=== PATIENT | male | born 1990 | race Caucasian/White ===

== ENCOUNTER 2024-04-01 01:03 | Observation (INO) | payer OTHER, SELFPAY ==
[2024-03-31 22:29] VITALS: BP 129/100
[2024-03-31 22:31] VITALS: BP 129/100
[2024-03-31 22:38] VITALS: BMI 27.1
[2024-03-31 22:46] LABS: % Basophils 0.9 % (0-2); % Eosinophils 3.9 % (0-6); % Immature Granulocytes 0.5 % (0-0.5); % Monocytes 8.7 % (1.7-9.3); Absolute Basophils 0.1 10^3/uL (0-0.2); Absolute Eosinophils 0.3 10^3/uL (0-0.7); Absolute Lymphocytes 2.6 10^3/uL (1.2-3.4); Absolute Monocytes 0.8 10^3/uL (0.1-0.6); Absolute Neutrophils 4.9 10^3/uL (1.4-6.5); Hematocrit 41.1 % (39.0-52.0); Hemoglobin 15.2 g/dL (13.0-18.0); Mean Corpuscular Hgb 30.4 pg (27.0-31.0); Mean Corpuscular Volume 82.2 fL (80.0-94.0); Nucleated Red Blood Cells % 0 % (-); Platelet Count 226 10^3/uL (130-400); Red Cell Dist. Width 12.1 % (11.5-14.5); White Blood Cell Count 8.7 10^3/uL (4.8-10.8)
[2024-03-31 22:47] VITALS: BP 166/94
[2024-03-31 23:00] VITALS: BP 120/97
--- NOTE | 2024-03-31 23:11 | ED.GENMED ---
History of Present Illness
General
Chief Complaint: Dizziness
Source: patient
Exam Limitations: none
Time Seen by Provider: 03/31/24 22:30
Nursing documentation reviewed up to this point in time: agreed with
History of Present Illness
History of Present Illness:
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
thought was methamphetamine here he has had a slow A-fib with some pauses corresponding to him vomiting his partner tells me there is been some fluid going around his work, patient has no history of A-fib, no personal history of A-fib no family
history of A-fib noted his family should needed a pacemaker
Past History
Past History
ED Past Medical History: HTN
ED Past Surgical History: Orthopedic
Social History
Tobacco: Non-smoker
Alcohol: Occasional
Drug: None
Living: with family
Employment: Employed
Review of Systems
Review of Systems
All Other Systems: Not applicable
Constitutional: Reports fatigue; Denies fever
EENT: Reports no symptoms
Respiratory: Reports no symptoms
Cardiac: Reports diaphoresis and palpitations; Denies chest pain or syncope
ABD/GI: Reports nausea and vomiting
: Reports no symptoms
Musculoskeletal: Reports no symptoms
Neurological: Reports dizzy
Endocrine: Reports no symptoms
Phy Exam
Physical Exam
Physical Exam:
Physical Exam
General: 33-year-old female diaphoretic nauseous
Neck: No jaundice
Heart: Slow irregular
Lungs: no acute respiratory distress. clear bilaterally
Abdomen: Not tender
Neuro: alert and oriented. no focal neurological deficits
Skin: no rash
Psychiatric: well kept. interactive and cooperative
Extremities: no edema.
Course
Orders/Labs/Results
Orders:
Orders
03/31/24 22:29
Electrocardiogram (*1) Urgent
Reason for Study: Abnormal EKG
EKG- Treatment ONCE
03/31/24 22:40
Complete Blood Count/With Diff Urgent
Comprehensive Metabolic Panel Urgent
Magnesium Urgent
03/31/24 22:45
Atropine Sulfate [Atropine 0.1 mg/ml Syringe] 1 mg .ROUTE .STK-MED ONE
03/31/24 22:46
Electrocardiogram (*1) Urgent
Reason for Study: Palpitations
03/31/24 22:47
EKG- Treatment ONCE
03/31/24 22:52
TSH Reflex To Free T4 Urgent
Troponin I Urgent
03/31/24 22:56
Influenza A+B Rapid Molecular Urgent
LISE Source: Nasal Swab
Specimen Description:
03/31/24 22:59
Urine Drug Abuse Screen Urgent
04/01/24 00:00
CR Chest - 2 Views Urgent
Reason For Exam: new onset afib
04/01/24 00:54
Admit/Transfer Patient As Directed
Co-Sign Provider:
Level of Care: Observation services
Assign to:: Telemetry
Physician / Group: Dwayne
Diagnosis: New A-Fib, Vertigo
Reason for Telemetry: Arrhythmia
Date to Stop Telemetry: 04/04/24
Time to Stop Telemetry: 11:00
Code Status As Directed
Resuscitation Status: Full Code
PRN Pain Medication Management As Directed
May give lesser potent ordered pain med per pt: Yes
preference::
Protocol:: Medication orders for pain may be administered in a
manner that supports deferring to patient preference
when the pt is:
- Requesting an ordered lesser potent pain medication.
Least to most potent pain medications are defined
as: acetaminophen < NSAID < tramadol < opioids
(morphine, oxycodone, hydromorphone).
- Requesting a lesser dose of the same medication IF
ORDERED.
- Requesting a less intrusive route of administration
if both routes are prescribed by the provider (PO <
IV).
04/04/24 11:00
DC Protocol for Telemetry ONCE
Abnormal Lab Results
03/31/24
22:40
Absolute Monos (auto) 0.8 H 10^3/uL
(0.1-0.6)
Creatinine 0.6 L mg/dL
(0.7-1.3)
Glucose 125 H mg/dl
(70-99)
03/31/24 22:40
03/31/24 22:40
Vital Signs
Initial and Last Documented VS:
Initial Vital Signs
BP
129/100
03/31/24 22:29
Last Documented Vital Signs
Temp Pulse Resp BP Pulse Ox
97.6 F 72 21 117/74 95
03/31/24 22:31 04/01/24 00:45 04/01/24 00:45 04/01/24 00:36 04/01/24 00:45
MDM/Problems Addressed
Differential Diagnosis Includes:
Viral syndrome primary arrhythmia, doubt medication/drug-induced bradycardia perhaps vasovagal induced bradycardia
MDM/Problems Addressed:
Bradycardia A-fib nausea
Chronic conditions affecting care: HTN
Acute Exacerbation and/or Progression of Chronic Illness: HTN
*Radiology
Radiology exam reviewed: preliminary read by ED provider
*Pulse Oximetry
Patient hypoxic: no
*EKG
Interpreted by ED Provider?: Yes
Interpretation: abnormal
Comparison EKG: no comparison EKG present
Heart Rate: 58
Rate: bradycardiac
Rhythm: a-fib
Ischemia: non-specific ST changes
*Network Pricing Consultant Interpretation
Rate: normal
Interpretation: normal
Heart Rate: 58
Rhythm: a-fib
*Critical Care Note
Total Time (30-74mins, 75-104mins- exclusive of procedures): Not Applicable
Update Note
Update Note:
Update, feeling better after fluids received Zofran by EMS did have an episode here bradycardia will review his strips some of this could certainly be vagally mediated,
Update continues to feel okay still in A-fib chest x-ray noted labs are noted flu negative
ED Attending Note
-
Portions of this chart may have been created with voice recognition software.� Occasional wrong word or��sound alike� substitutions may have occurred due to the inherent limitations of voice recognition software.
Discharge Plan
Departure
Patient Disposition: Admit
Date of Disposition: 04/01/24
Time of Disposition: 00:40
Admit to: Telemetry
Presentation/result/management discussed w/ accepting MD/DO: Hospitalist
Patient with high blood pressure during this ER visit?: No
Condition: Fair
Discharge Problem:
Near syncope, Atrial fibrillation, Bradycardia
Interventions
Interventions:
*Risk Screen - Suicide Last Done: 03/31/24 22:32
*General Assessment Last Done: 03/31/24 22:36
*Neglect/Abuse Screening Last Done: 03/31/24 22:32
*ED COVID-19 Vaccine History Last Done: 03/31/24 22:31
ED- Neurological Assessment Last Done: 03/31/24 22:34
ED Swallowing Screen Last Done: 03/31/24 22:34
[2024-03-31 23:17] LABS: ALT (SGPT) 39 U/L (0-50); AST (SGOT) 33 U/L (17-59); Albumin 4.9 g/dl (3.5-5.0); Alkaline Phosphatase 66 U/L (38-126); Blood Urea Nitrogen 18 mg/dl (9-20); Calcium 9.2 mg/dl (8.4-10.2); Carbon Dioxide 23 mmol/L (22-30); Chloride 101 mmol/L (98-107); Glucose 125 mg/dl (70-99); Magnesium 2.1 mg/dl (1.6-2.3); Potassium 3.7 mmol/L (3.5-5.1); Sodium 138 mmol/L (135-145); Total Bilirubin 0.7 mg/dl (0.2-1.3); Total Protein 7.2 g/dl (6.3-8.2); eGFR > 60.00
[2024-03-31 23:27] LABS: Troponin I < 0.012 ng/ml
[2024-04-01] VITALS (9 sets, daily range): BP systolic 106–141; BP diastolic 74–103; PULSE 74–86; BMI 26.2
--- NOTE | 2024-04-01 00:57 | HPS.HSE ---
Family Physician
-
Family Physician: Charmaine Burns
Chief Complaint
-
Dizzy, N/V
History of Present Illness
Patient is a 33y M with PMH significant for hypertension who presents to ED complaining of dizziness and N/V that started suddenly this evening. Patient states that he has been feeling well today / recently. He has family members and co-workers
who have jose ill with the flu. Today he had lunch at [employer] and then went to work this evening. 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 He states that he was checking a powdery
substance into evidence when he noted room spinning sensation and nausea. No headache, vision changes, chest pain or dyspnea. Patient states that the substance did not contact his skin. There was no exposure to fumes, etc that was appreciated.
Patient did not lose consciousness but had to sit down due to the dizziness. He had 4 episodes of emesis at the police station and then multiple additional episodes here in the ED.
On evaluation in the ED, patient is noted to be in atrial fibrillation with controlled rates / occasional pauses. No prior history of this.
At present, patient states that his dizziness and nausea are somewhat improved.
Medical History
Past Medical History
Past Medical History: Reports Other
Additional Past Medical History:
Hypertension
Asthma
Past Surgical History: Reports None and Other
Social History
Tobacco: Non-smoker
Alcohol: Occasional
Drug: None
Family History
Family History: CAD and Hypertension
Allergies / Home Medications
Allergies reflects when Allergies were last updated in [facility].
Home Medications with original date entered in [facility]
Allergy/Medication List:
Allergies
Allergy/AdvReac Type Severity Reaction Status Date / Time
prochlorperazine Allergy Swelling Verified 03/31/24 22:30
[From Compazine]
Home Medications
losartan 25 mg tablet 25 mg PO BID 03/31/24
Review of Systems
-
History Source: Patient
A 12 point ROS was completed and negative except as noted: Yes
Constitutional: Denies Fever or Chills
Respiratory: Denies Cough or Trouble Breathing
Cardiac: Denies Chest Pain or Palpitations
Abdomen/GI: Reports Nausea and Vomiting; Denies Abdominal Pain or Diarrhea
: Denies Dysuria or Frequency
Musculoskeletal: Denies Joint Pain or Edema
Neurological: Reports Dizzy; Denies Headache
Psych: Denies Depression or Anxiety
Physical Exam
Vital Signs
Vital Signs
Temp Pulse Resp BP Pulse Ox
97.6 F 72 21 117/74 95
03/31/24 22:31 04/01/24 00:45 04/01/24 00:45 04/01/24 00:36 04/01/24 00:45
Physical Exam
General: Other (33y M in no acute distress.)
HEENT: Moist mucous membranes and PERRLA
Respiratory: Clear; No Wheezes, Rales or Rhonchi
Cardiac: S1/S2 and Irregular Rhythm; No Murmur
GI: Soft, Non Tender, Non Distended and Normal Bowel Sounds
Musculoskeletal: No Clubbing, No Cyanosis and No Edema
Neuro: AO x 3 and Nonfocal/grossly intact
Laboratory Results
-
03/31/24 22:40
03/31/24 22:40
Laboratory Results
Total Bilirubin 0.7 mg/dl (0.2-1.3) 03/31/24 22:40
AST 33 U/L (17-59) 03/31/24 22:40
ALT 39 U/L (0-50) 03/31/24 22:40
Alkaline Phosphatase 66 U/L (38-126) 03/31/24 22:40
Troponin I < 0.012 ng/ml 03/31/24 22:52
Impression/Plan
-
A/P: Patient is a 33y M with PMH significant for hypertension who presents to ED c/o onset of dizziness and N/V this evening.
Vertigo / Dizziness
- Observe overnight for further evaluation and treatment.
- Supportive care including IVFs, antiemetics, and meclizine PRN.
- Symptoms improving since initial arrival.
- Follow for clinical changes.
- Consider [facility] imaging / MRI if symptoms worsen or recur or new / focal symptoms develop.
- ? if symptoms related to 'substance' exposure (suspected methamphetamine) - but patient denies any skin contact / inhalation / etc.
- UDS pending.
Atrial Fibrillation - New
- Patient noted to be in A-Fib with no prior tracings for comparison.
- No palpitations, chest pain, etc.
- ? onset of arrhythmia coincides with onset of this evening's symptoms?
- Monitor on telemetry overnight.
- No need for chronotropic agents - slow rate with occasional pauses.
- TFTs normal. Electrolytes normal.
- Cardiology eval in the AM for additional recommendations.
- CHADSVASC = 1 (hypertension). Defer to Cardiology for now re: decision on anticoagulation.
Benign Hypertension
- Stable. Continue losartan with holding parameters.
Asthma without Acute Exacerbation
- Stable. Continue Breo daily.
- Patient notes that he never requires his rescue inhaler.
DVT prophylaxis: Lovenox
Code Status: Full
[2024-04-01 01:39] LABS: Amphetamines Negative (Negative); Barbiturates Negative (Negative); Benzodiazepines Negative (Negative); Buprenorphine Negative (Negative); Cocaine Negative (Negative); Marijuana Negative (Negative); Methadone Negative (Negative); Methamphetamines Negative (Negative); Opiates Negative (Negative); Phencyclidine Negative (Negative); Tricyclic Antidepressants Negative (Negative)
[2024-04-01] MEDS: LR 1000 IV ×3 (02:51→21:26)
--- NOTE | 2024-04-01 04:31 | TRANSFER ---
pt arrived from ED,walked independently to bed from stretcher. AAOx3, VSS. call matthews within reach, plan of care ongoing
[2024-04-01 07:50] LABS: Blood Urea Nitrogen 12 mg/dl (9-20); Calcium 9.5 mg/dl (8.4-10.2); Carbon Dioxide 28 mmol/L (22-30); Chloride 100 mmol/L (98-107); Estimated Creatinine Clearance > 125 ml/min; Glucose 111 mg/dl (70-99); HDL Cholesterol 49 mg/dl; LDL Cholesterol, Calculated 133 mg/dl; Potassium 4.3 mmol/L (3.5-5.1); Sodium 139 mmol/L (135-145); Total Cholesterol 189 mg/dl (50-199); Triglyceride 39 mg/dl (10-149); Very Low Density Lipoprotein 7 mg/dl (0-30); eGFR > 60.00
--- NOTE | 2024-04-01 08:19 | CON.CAR ---
Addendum entered and electronically signed by Michael Lee MD 04/01/24 12:24:
I saw and examined the patient.
The BACK OFFICE MEDICAL ASSISTANT's note was reviewed and I agree with the note.
Comment: 33 yo with HTN, who presents to the ER with c/o acute dizziness (room spinning) with associated nausea and vomiting while at work and came to the ER via EMS. He was noted to be in rate controlled AF. He is now feeling better without any
further dizziness, yet remains in AF. His father and paternal grandmother had AF at a yound age. 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 He has never had an issue swallowing. On exam he irreg irreg without any murmmurs,
lungs are CTA. ECG is AF with PVC. Overall, he has new dx of afib. I don't think it is the cause of his symptoms as he is feeling better and not having the symptoms. Given age, I will offer FOZIA/DCCV after any further evaluation for dixxiness and
visual changes complete. He is a C2V of a 1. Would need to agree to DOAC post cardioversion. He understands. D/w Dr Shah who will see and evaluate. Tentative plan for FOZIA/DCCV in the am.
Original Note:
Consultation
Consultation Request
Date/Time Consultation Requested: 04/01/24 1a
Date/Time Consultation Performed: 04/01/24 8:15a
Requesting Provider: Dr. Rice
Performing Provider: MADAY Murray for Dr. Lee
Reason for Consultation: Afib
Medical History
-
Chief Complaint: dizziness, nausea/vomiting
History of Present Illness:
Mr. Brown is a 33 yo with HTN, who presents to the ER with c/o acute dizziness (room spinning) with associated nausea and vomiting while at work and came to the ER via EMS. He was noted to have new Afib, rate controlled on EKG. He is admitted to
the hospitalist service and we are consulted for new onset Afib. EKG in the ER with Afib 62 bpm. He denies feeling any palpitations then or now.
Past Medical History
Past Medical History: HTN
Past Surgical History: Orthopedic (ankle)
Social History
Tobacco: Non-Smoker
Alcohol: Occasional (one drink a month)
Drug: None
Personal:
Living: With Family
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
Family History
Family History: Other (father has Afib )
Allergies / Home Medications
Allergy/AdvReac Type Severity Reaction Status Date / Time
prochlorperazine Allergy Swelling Verified 03/31/24 22:30
[From Compazine]
�Medication �Instructions �Recorded �Confirmed �Type
losartan 25 mg tablet 25 mg PO BID 03/31/24 03/31/24 History
fluticasone furoate 100 1 inh inhalation QPM 04/01/24 04/01/24 History
mcg-vilanterol 25 mcg/dose
inhalation powder (Breo Ellipta)
Review of Systems
-
History Source: Patient
All other systems: Negative unless noted
Physical Exam
Vital Signs
Temp Pulse Resp BP Pulse Ox
98.4 F 105 20 126/93 98
04/01/24 03:30 04/01/24 03:30 04/01/24 03:30 04/01/24 03:30 04/01/24 04:22
Lab Results
04/01/24 06:54
Troponin I < 0.012 ng/ml 03/31/24 22:52
Physical Exam
General: Well Developed, Well Nourished and No Apparent Distress
HEENT: Normocephalic, Anicteric and Moist Mucous Membranes
Respiratory: Clear and Non Labored Respirations
Cardiac: S1/S2 and Irregular Rhythm
Breast: Deferred by me
GI: Soft, Non Tender, Non Distended and Normal Bowel Sounds
Rectal: Deferred by Provider
Genito-urinary: No Costovertebral Tender
Musculoskeletal: No Clubbing, No Cyanosis and No Edema
Skin: Warm and Dry
Neuro: AO x 3
Hematologic/Lymphatic: No Lymphadenopathy
Psych: Calm
Impression / Plan
-
Afib - new onset, duration unknown, presumed acute onset last night.
- rate controlled, asymptomatic.
- [id number] score is 1 (HTN).
- check echo today.
- consider FOZIA/DCCV tomorrow, post CV he will need OAC uninterrupted for 28 days.
HTN - stable on Losartan, continue.
Dizziness - acute onset described as the room spinning with nausea/vomiting.
- vertigo? has meclizine ordered PRN, not needed yet today.
- per hospitalist.
- check echo.
- none further today.
Data Reviewed
-
EKG: Tracing Personally Visualized and interpreted (Afib 62 bpm)
Radiology: Image Personally Visualized and interpreted (CXR nad)
Labs: Labs Reviewed by me
[2024-04-01 08:43] LABS: Glycohemoglobin (HgbA1c) 4.9 % (4.0-5.6)
[2024-04-01] MEDS: COZAAR 25 MG PO (08:51)
[2024-04-01 09:17] LABS: Hematocrit 43.7 % (39.0-52.0); Mean Corp Hgb Conc. 36.6 g/dL (33.0-37.0); Mean Corpuscular Hgb 30.1 pg (27.0-31.0); Mean Corpuscular Volume 82.1 fL (80.0-94.0); Mean Platelet Volume 8.9 fL (7.4-10.4); Platelet Count 257 10^3/uL (130-400); Red Blood Cell Count 5.32 10^6/uL (4.70-6.10); Red Cell Dist. Width 12.3 % (11.5-14.5)
[2024-04-01 11:44] LABS: COVID-19 Antigen Negative (Negative)
--- NOTE | 2024-04-01 12:48 | W.PN.HOSP.TC ---
Today's Communication/Plan
-
MRI brain
NPO p MN for tentative cardioversion 04/02. D/w Cardiology
Assessment / Plan
Assessment / Plan
Assessment:
Vertigo/Dizziness
- UDS negative
- continue IVF, prn Meclizine
- check MRI brain to evaluate for CVA (hx of HTN, Afib)
parox Atrial Fibrillation - New
- controlled rate
- TSH normal
- Echo: pending
- CHADSVASC = 1 (hypertension). Await MRI in case score increases
- CBC cards following; tentatively for Cardioversion tomorrow pending MRI result
Benign Hypertension
- Stable. continue losartan with holding parameters.
Asthma without Acute Exacerbation
- Stable. continue Breo daily.
- Patient notes that he never requires his rescue inhaler.
DVT prophylaxis: Lovenox
Code Status: Full
Anticipated Discharge: 24 - 48 hours
Subjective/Interval History
-
Date of Service: April 01, 2024
dizziness now resolved
remains in rate controlled Afib. no cp or sob
Objective Data
-
Labs:
Laboratory Results
04/01/24 04/01/24
06:54 08:54
WBC Cancelled 10.0
Hgb Cancelled 16.0
Hct Cancelled 43.7
Plt Count Cancelled 257
Sodium 139
Potassium 4.3
Chloride 100
Carbon Dioxide 28
BUN 12
Creatinine 0.7
Glucose 111 H
Calcium 9.5
Vital Signs:
Vital Signs
Temp Pulse Resp BP Pulse Ox
98.1 F 68 16 126/78 97
04/01/24 11:55 04/01/24 11:55 04/01/24 11:55 04/01/24 11:55 04/01/24 11:55
I&O
03/31/24 04/01/24 04/02/24
06:59 06:59 06:59
Intake Total 615 / 615
Output Total 1075 / 1075
Balance -460 / -460
Physical Exam
-
General: No Apparent Distress
HEENT: Normocephalic and Atraumatic
Respiratory: Negative Wheezes
Cardiac: Regular Rhythm and S1/S2
GI: Soft and Nontender
Genito-urinary: No Costovertebral Tender
Musculoskeletal: No Edema
Neuro: AO x 3
Hematologic / Lymphatic: No Lymphadenopathy
Psych: Calm
Data Reviewed
-
Total Time Spent with Patient (in minutes): 41
Labs: Labs Reviewed by me
[2024-04-01] MEDS: COZAAR PO (21:30)
[2024-04-02 03:47] VITALS: BP 118/70
[2024-04-02] MEDS: LR 1000 IV (05:47)
[2024-04-02 07:15] VITALS: BP 125/78
[2024-04-02 07:16] VITALS: BP 125/78; BP 125/86; BP 130/85; PULSE 66; PULSE 74; PULSE 80
[2024-04-02] MEDS: COZAAR 25 MG PO (08:03)
[2024-04-02 08:16] LABS: Hemoglobin 15.4 g/dL (13.0-18.0); Mean Corp Hgb Conc. 35.8 g/dL (33.0-37.0); Mean Corpuscular Hgb 30.1 pg (27.0-31.0); Mean Corpuscular Volume 84.1 fL (80.0-94.0); Platelet Count 212 10^3/uL (130-400); Red Blood Cell Count 5.11 10^6/uL (4.70-6.10); Red Cell Dist. Width 12.4 % (11.5-14.5); White Blood Cell Count 8.5 10^3/uL (4.8-10.8)
--- NOTE | 2024-04-02 10:17 | W.PN.HOSP.TC ---
Today's Communication/Plan
-
dc today home
Assessment / Plan
Assessment / Plan
Assessment:
Vertigo/Dizziness
- UDS negative
- MRI brain negative for CVA
parox Atrial Fibrillation - New
- controlled rate
- TSH normal
- Echo: normal
- CHADSVASC = 1 (hypertension).
- s/p successfull cardioversion restord to NSR today; Eliquis 5mg BID x 1 month
- Toprol XL added
- CBC cards follow up OP
Benign Hypertension
- Toprol XL added; stop losartan
Asthma without Acute Exacerbation
- Stable. continue Breo daily.
- Patient notes that he never requires his rescue inhaler.
DVT prophylaxis: Lovenox
Code Status: Full
More than 30 minutes spent in discharge including
Final examination of the patient
Summarizing hospital stay
Instructions for continuing care to all relevant caregivers
Preparation of discharge records, prescriptions, and referral forms
Total time spent (in minutes):41
Anticipated Discharge: Today
Subjective/Interval History
-
Date of Service: April 02, 2024
s/p successful CV restored to NSR
Objective Data
-
Labs:
Laboratory Results
04/02/24
07:55
WBC 8.5
Hgb 15.4
Hct 43.0
Plt Count 212
Sodium Pending
Potassium Pending
Chloride Pending
Carbon Dioxide Pending
BUN Pending
Creatinine Pending
Glucose Pending
Calcium Pending
Vital Signs:
Vital Signs
Temp Pulse Resp BP Pulse Ox
98.3 F 66 18 125/78 98
04/02/24 07:15 04/02/24 08:03 04/02/24 07:15 04/02/24 08:03 04/02/24 07:15
I&O
04/01/24 04/02/24 04/03/24
06:59 06:59 06:59
Intake Total 615 / 615 2460 / 2460
Output Total 1075 / 1075
Balance -460 / -460 2460 / 2460
Physical Exam
-
General: No Apparent Distress
HEENT: Normocephalic and Atraumatic
Respiratory: Negative Wheezes
Cardiac: Regular Rhythm and S1/S2
GI: Soft
Genito-urinary: No Costovertebral Tender
Musculoskeletal: No Edema
Neuro: AO x 3
Hematologic / Lymphatic: No Lymphadenopathy
Psych: Calm
Data Reviewed
-
Total Time Spent with Patient (in minutes): 41
Labs: Labs Reviewed by me
--- NOTE | 2024-04-02 10:24 | W.DS.TRANS ---
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
-
Discharge Instructions:
Discharge Diagnosis/Procedures vertigo, new onset Afib, cardioversion 04/02
Diet Regular
Activity As tolerated
Bathing Restrictions None
Instructions:
Stand-Alone Forms:
Changes to Home Medications: Yes
Discharge Medications:
DC Medications w/original date entered in [facility]
fluticasone furoate 100 mcg-vilanterol 25 mcg/dose inhalation powder (Breo Ellipta) 1 inh inhalation QPM 04/01/24
apixaban 5 mg tablet (Eliquis) 5 mg PO BID #60 tabs 04/02/24
metoprolol succinate 25 mg tablet,extended release 24 hr (Toprol XL) 25 mg PO DAILY #30 tabs 04/02/24
Home Medication Changes
Eliquis
BB instead of ARB
Pending Results: No
Total time spent discharging patient (in min): 41
--- NOTE | 2024-04-02 11:41 | CM ---
SUSAN met with Chaim at bedside with his . Outpatient OBS notice provided; signed copy placed in chart and Chaim was provided with a copy.
Chaim, his and 4 children live in a 2 story home with 2 entry steps. [employer] (and currently) Chaim is (I) amb and adls.
Pt with new Eliquis Rx; provided $10 copay card and explained that pt should bring the card to the pharmacy each time he needs to fill the prescription.
Plan: Discharge to home with no needs.
[2024-04-02 11:43] VITALS: BP 120/87
[2024-04-02 12:19] LABS: Blood Urea Nitrogen 11 mg/dl (9-20); Calcium 8.9 mg/dl (8.4-10.2); Carbon Dioxide 31 mmol/L (22-30); Chloride 103 mmol/L (98-107); Estimated Creatinine Clearance 117 ml/min; Glucose 102 mg/dl (70-99); Potassium 4.1 mmol/L (3.5-5.1); Sodium 139 mmol/L (135-145); eGFR > 60.00
--- NOTE | 2024-04-02 12:42 | W.PN.CD ---
Today's Communication / Plan
-
- Patient underwent successful FOZIA-guided cardioversion this a.m.; now in sinus rhythm.
- Will start Eliquis 5 mg twice daily; should continue Eliquis uninterrupted for 1 month.
- Will start Toprol-XL 25 mg once daily; discontinue losartan for now.
- Outpatient follow-up with Cardiology.
Impression / Plan
-
Afib - new onset, duration unknown.
- [id number] score is 1 (HTN).
- Normal LVEF; no significant valvular disease on echocardiogram.
- Patient underwent successful FOZIA-guided cardioversion this a.m.; now in sinus rhythm.
- Will start Eliquis 5 mg twice daily; should continue Eliquis uninterrupted for 1 month.
- Will start Toprol-XL 25 mg once daily; discontinue losartan for now.
- Outpatient follow-up with Cardiology.
HTN -blood pressure controlled; changing from losartan to Toprol-XL for now.
Physical Exam
Vital Signs/Labs
Vital Signs
Temp Pulse Resp BP Pulse Ox
98.2 F 71 18 120/87 98
04/02/24 11:43 04/02/24 11:43 04/02/24 11:43 04/02/24 11:43 04/02/24 11:43
04/01/24 04/02/24 04/03/24
06:59 06:59 06:59
Actual Weight 73.6 kg
04/02/24 07:55
04/02/24 11:02
Magnesium 2.0 mg/dl (1.6-2.3) 04/01/24 06:54
Triglycerides 39 mg/dl (10-149) 04/01/24 06:54
LDL Cholesterol, Calc 133 mg/dl 04/01/24 06:54
VLDL Cholesterol, Calc 7 mg/dl (0-30) 04/01/24 06:54
HDL Cholesterol 49 mg/dl 04/01/24 06:54
LAB Results
03/31/24
22:52
Troponin I < 0.012
Physical Exam
Constitutional: No acute distress and Comfortable
EENT: Anicteric
Cardiovascular: Rhythm & rate is regular, Pedal edema is absent, Systolic murmur absent and S1S2 is normal
Respiratory: Respiratory effort normal and Lungs clear to auscul.
Neuro/Psych: AO x 3
Other: Skin (Warm, dry, intact)
Data Reviewed
-
Date of Service: April 02, 2024
EKG: Tracing Personally Visualized and interpreted (Afib --> NSR)
Echo: Tracing Personally Visualized and interpreted (FOZIA: No left atrial appendage thrombus)
Labs: Labs Reviewed by me
== END 2024-04-02 13:02 | disposition home or self-care (01) ==
LOC: 4 EAST ACU 01:03
PROVIDERS: Emergency Medicine; Internal Medicine; ADMITTING PHYSICIAN Hospitalist; ATTENDING PHYSICIAN Internal Medicine; EMERGENCY PHYSICIAN Emergency Medicine; FAMILY PHYSICIAN Family Medicine; OTHER PHYSICIAN Internal Medicine Cardiovascular Disease
PROC: B24BZZ4 Ultrasonography of Heart with Aorta, Transesophageal (ICD-10-PCS; 2024-04-02)
PROC: 5A2204Z Restoration of Cardiac Rhythm, Single (ICD-10-PCS; 2024-04-02)
DX: I48.0 Paroxysmal atrial fibrillation (principal); R00.2 Palpitations; I10 Essential (primary) hypertension; R00.1 Bradycardia, unspecified; J45.909 Unspecified asthma, uncomplicated; Z79.01 Long term (current) use of anticoagulants; R42 Dizziness and giddiness; Z82.49 Family history of ischemic heart disease and other diseases of the circulatory system; I45.10 Unspecified right bundle-branch block
CPT/HCPCS: 70551; 71046; 80048; 80053; 80061; 80306; 83036; 83735; 84443; 84484; 85025; 85027; 87502; 87811; 92960; 93005; 93306; 93312; 93320; 93325; 99285; G0378